=== PATIENT | male | born 1975 | race Caucasian/White ===

== ENCOUNTER 2017-09-27 07:54 | Emergency (ER) | payer OTHER ==
--- NOTE | 2017-09-27 08:21 | ER Document Report ---
ED Neck/Back Problem - General Mode of Arrival: Ambulatory Information source: Patient TRAVEL OUTSIDE OF THE [place] IN LAST 30 DAYS: No - General Chief Complaint: Neck and Upper Back Pain Stated Complaint: NECK PAIN Time Seen by Provider: 09/27/17 08:11 Notes: Patient is a 42 year old male that presents to the emergency department today with complaints of left arm pain/tingling. Patient states that he has had this pain for approximately 5 months. Patient states over the last month his symptoms have been constant and over the last week it has become much more severe. Patient states he is unable to sleep at night secondary to pain. (NAVEED FREEMAN) - Related Data Allergies/Adverse Reactions: No Known Allergies Allergy (Verified 09/27/17 08:04) Past Medical History - General Information source: Patient - Social History Smoking Status: Current Every Day Smoker Cigarette use (# per day): Yes - 1 ppd Lives with: Family Family History: Reviewed & Not Pertinent - Medical History Medical History: Negative Past Surgical History: Reports: Hx Orthopedic Surgery - Right rotator cuff repair, Hx Umbilical Hernia Review of Systems - Review of Systems Constitutional: No symptoms reported EENT: No symptoms reported Cardiovascular: No symptoms reported Respiratory: No symptoms reported Gastrointestinal: No symptoms reported Genitourinary: No symptoms reported Male Genitourinary: No symptoms reported Musculoskeletal: See HPI, Back pain, Neck pain Skin: No symptoms reported Hematologic/Lymphatic: No symptoms reported Neurological/Psychological: No symptoms reported -: Yes All other systems reviewed and negative Physical Exam - Vital signs Vitals: Temp Pulse Resp BP Pulse Ox 97.7 F 90 16 148/100 H 98 09/27/17 08:00 09/27/17 08:00 09/27/17 08:00 09/27/17 08:00 09/27/17 08:00 - Notes Notes: Physical Exam: General: Alert, appears well. HEENT: Normocephalic. Atraumatic. PERRL. Extraocular movements intact. Oropharynx clear. Neck: Supple. Turning head to left and tilting head back makes left arm pain considerably worse. Complaints of tingling in 4th/5th digits on left hand consistent with C8 radiculopathy. Respiratory: No respiratory distress. Clear and equal breath sounds bilaterally. Cardiovascular: Regular rate and rhythm. Abdominal: Normal Inspection. Non-tender. No distension. Normal Bowel Sounds. Back: Left shoulder, trapezius, and scapular musculature tenderness with palpation. No deformity or step off. Extremities: Moves all four extremities. Upper extremities: see back exam Lower extremities: Normal inspection. No edema. Normal ROM. Neurological: Normal cognition. AAOx4. Normal speech. Psychological: Normal affect. Normal Mood. Skin: Warm. Dry. Normal color. (NAVEED FREEMAN) Course - Re-evaluation Re-evalutation: 09/27/17 10:52 The patient is feeling much better at this time. The MRI shows multilevel disc disease and facet hypertrophy. It does not show a significant foraminal stenosis on the left at C6-7 or at C7-T1. (NAVID SANTOS) - Vital Signs Vital signs: Temp Pulse Resp BP Pulse Ox 97.7 F 90 16 148/100 H 98 09/27/17 08:00 09/27/17 08:00 09/27/17 08:00 09/27/17 08:00 09/27/17 08:00 Discharge - Discharge Clinical Impression: Cervical radiculopathy at C8 Condition: Stable Disposition: HOME, SELF-CARE Additional Instructions: Radiculopathy Radiculopathy is irritation of a nerve. Sometimes this is called "pinched nerve." The pain can be sharp and stabbing, constant and dull, or burning in nature. The pain can occur in any area of the chest, shoulders, or arms. Sometimes the pain is provoked by coughing or moving. Radiculopathy can be caused by physical pressure on a nerve, such as a herniated disc or swollen joint in the spine. It can also be caused by viral infections within the nerve or by nerve damage due to diabetes or blood vessel disease. Radicular pain is treated with antiinflammatory medicine. Injections may help resistant cases, if we can identify a single nerve that's causing the pain. Surgery is usually not necessary. If symptoms do not improve with time, you may need additional testing, such as an MRI or EMG (electromyogram). Return if there is local weakness or numbness, shortness of breath, increasing pain, or other new symptoms. //////////////////////////////////////////////////////////////////////////////// //////////////////////////////////////////////////////////////////////////////// ///////////////// Take medications as prescribed. Start the prednisone tomorrow. Limit activities that seem to make the pain worse. Try to avoid hyperextending her neck. Follow-up with Dr. Ibrahim within the next week for evaluation. If you do not see Dr. Ibrahim, then follow-up with a spine surgeon. Take the CD disc of the MRI study with you. RETURN TO THE EMERGENCY ROOM IF ANY NEW OR WORSENING SYMPTOMS. Prescriptions: Oxycodone HCl/Acetaminophen [Percocet 5-325 mg Tablet] 1 tab PO ASDIR PRN #15 tablet PRN Reason: Prednisone [Deltasone 10 mg Tablet] 10 mg PO ASDIR PRN #21 tablet PRN Reason: Referrals: LENNIE IBRAHIM MD [COMMUNITY BASED STAFF] - Follow up in 3-5 days Scribe Attestation: 09/27/17 08:57 I personally performed the services described in the documentation, reviewed and edited the documentation which was dictated to the scribe in my presence, and it accurately records my words and actions. (NAVID SANTOS) Scribe Documentation - Scribe Written by Be:: Be Perez, 09/27/2017 0847 acting as scribe for :: Micky
[2017-09-27] MEDS ORDERED: OXYCODONE-ACETAMINOPHEN 5-325 MG TABLET PO ONE (08:22)
[2017-09-27] MEDS ORDERED: PREDNISONE 20 MG TABLET PO ONE (08:22)
--- NOTE | 2017-09-27 09:46 | RADIOLOGY REPORT (SQ) ---
EXAM DESCRIPTION: MRI CERVICAL SPINE WITHOUT COMPLETED DATE/TIME: 09/27/2017 9:30 am REASON FOR STUDY: L C8 radiculopathy COMPARISON: None. TECHNIQUE: Sagittal and Axial imaging includes T1, T2, STIR and gradient echo sequences. LIMITATIONS: None. FINDINGS: ALIGNMENT: Normal. VERTEBRAE: Intact. BONE MARROW: Normal. No marrow replacement or reactive changes. DISCS: Normal. No significant abnormal signal or loss of height. HARDWARE: None in the spine. CORD AND BASE OF BRAIN: Normal in size and signal intensity. SOFT TISSUES: No soft tissue masses. C1-C2: No significant spinal stenosis. C2-C3: No significant spinal stenosis or exit foraminal stenosis. C3-C4: Moderate to high-grade right foraminal stenosis is present, from facet and uncovertebral hyper trophy, best shown on axial T2 series 6, image 8. Elsewhere at C3-4, no central canal narrowing or l eft foraminal stenosis is present. C4-C5: Moderate to high-grade right foraminal narrowing at C4-5 results from facet and uncovertebral hypertrophy. There is minimal posterior disc bulging without central stenosis or left foraminal narr owing. C5-C6: Broad diffuse posterior disc bulge and bony spurring partly effaces the ventral thecal sac wit hout cord flattening or abnormal intrinsic cord signal. High-grade bilateral foraminal narrowing is present best shown on axial T2 series 6, images 16 and 17. C6-C7: Mild left foraminal narrowing at C6-7 from facet and uncovertebral hypertrophy. No central st enosis or right foraminal narrowing. C7-T1: No significant spinal stenosis or exit foraminal stenosis. UPPER THORACIC: Incompletely imaged. No significant spinal stenosis or exit foraminal stenosis. OTHER: No other significant finding. IMPRESSION: Multilevel foraminal narrowing from facet and uncovertebral hypertrophy as above. TECHNICAL DOCUMENTATION: JOB ID: [id number] [employer]- All Rights Reserved
[2017-09-27 11:20] VITALS: BP 123/78
== END 2017-09-27 11:20 | disposition home or self-care (01) ==
LOC: ER 07:54
DX: M54.12 Radiculopathy, cervical region (principal); M54.2 Cervicalgia; M54.6 Pain in thoracic spine; R20.0 Anesthesia of skin; M79.602 Pain in left arm; F17.210 Nicotine dependence, cigarettes, uncomplicated
CPT/HCPCS: 99283; 72141; J7512